=== PATIENT | male | born 1945 | race Caucasian/White ===

== ENCOUNTER 2020-04-15 16:36 | Emergency (ER) | payer MEDICARE ==
[~2020-04-15] VITALS: Ht 177.8 cm; Wt 79.5 kg
--- NOTE | 2020-04-15 17:17 | NUR ---
PT IS 75YO MALE HAD PACEMAKER/DEFIBRILLATOR PLACED YESTERDAY, WOKE UP THIS AM WITH SITE WAS BLEEDING, WENT TO DR HANNAH'S OFFICE AND HAD DRESSING CHANGED AT 1100, DRESSING IS SATURUATED WITH BLOOD, NO BLEEDING AT THIS TIME, Abraham LUGO AT BEDSIDE TO EVAL PT
--- NOTE | 2020-04-15 17:54 | NUR ---
dressing has been changed by Abraham LUGO, no bleeding noted
[2020-04-15 18:09] LABS: BASOPHILS % (AUTO) 0.3 % (0-1); EOSINOPHILS # (AUTO) 0.1 X10'3 (0-0.9); EOSINOPHILS % (AUTO) 1.4 % (0-6); HEMATOCRIT 38.3 % (42.0-52.0); HEMOGLOBIN 13.2 g/dl (14.0-17.9); LYMPHOCYTES # (AUTO) 0.6 X10'3 (1.1-4.8); LYMPHOCYTES % (AUTO) 9.2 % (21-51); MEAN CORPUSCULAR HEMOGLOBIN 32.7 PG (27.0-31.0); MEAN CORPUSCULAR HGB CONC 34.4 g/dL (33.0-36.5); MEAN CORPUSCULAR VOLUME 95.1 FL (78-98); MEAN PLATELET VOLUME 10.4 FL (7.4-10.4); MONOCYTES # (AUTO) 0.6 X10'3 (0-0.9); MONOCYTES % (AUTO) 9.1 % (2-12); NEUTROPHILS # (AUTO) 5.1 X10'3 (1.8-7.7); PLATELET COUNT 116 X10'3 (140-440); RED BLOOD COUNT 4.03 X10'6 (4.70-6.10); RED CELL DISTRIBUTION WIDTH 13.5 % (11.5-14.5); WHITE BLOOD COUNT 6.4 X10'3 (4.5-11.0)
[2020-04-15 18:48] VITALS: BP 113/65
== END 2020-04-15 19:14 | disposition home or self-care (01) ==
LOC: ER 16:37
DX: T81.9XXA Unspecified complication of procedure, initial encounter (principal); I25.10 Atherosclerotic heart disease of native coronary artery without angina pectoris; I25.2 Old myocardial infarction; Z95.0 Presence of cardiac pacemaker; Z88.8 Allergy status to other drugs, medicaments and biological substances
CPT/HCPCS: 12002; 36415; 85025; 99283